=== PATIENT | male | born 1980 ===

== ENCOUNTER 2017-09-23 10:51 | Emergency (ER) | payer SELFPAY ==
[2017-09-23 11:04] VITALS: BMI 23.3
[2017-09-23] MEDS ORDERED: Lidocaine 1% Inj (20ml) INFIL STA (11:17)
[2017-09-23] MEDS ORDERED: Bacitracin 500 Units/gm Oint Foilpak UD TOP STA (11:17)
[2017-09-23] MEDS ORDERED: Lidocaine Hydrochloride 5 ML INJ ONE (11:19)
--- NOTE | 2017-09-23 12:55 | C.PDOC ---
History Of Present Illness 37-year-old male, presents to the emergency department with complaints of laceration to leg. Patient states he was playing soccer and fell, sustaining laceration to left lower leg but unsure from what. Denies any numbness/weakness , nausea/vomiting, or other injuries. Time Seen by Provider: 09/23/17 11:09 Chief Complaint (Nursing): Abnormal Skin Integrity History Per: Patient History/Exam Limitations: no limitations Current Symptoms Are (Timing): Still Present Past Medical History Reviewed: Historical Data, Nursing Documentation, Vital Signs Vital Signs: Last Vital Signs Temp 98.1 F 09/23/17 13:00 Pulse 66 09/23/17 13:00 Resp 18 09/23/17 13:00 BP 112/66 09/23/17 13:00 Pulse Ox 100 09/23/17 15:17 Family History: States: No Known Family Hx - Social History Hx Alcohol Use: Yes Hx Substance Use: No - Immunization History Hx Tetanus Toxoid Vaccination: Yes Hx Influenza Vaccination: No Hx Pneumococcal Vaccination: No Review Of Systems Gastrointestinal: Negative for: Nausea, Vomiting Musculoskeletal: Positive for: Leg Pain Neurological: Negative for: Weakness, Numbness Physical Exam - Physical Exam Appears: Non-toxic, No Acute Distress Skin: Normal Color, Warm, Dry, No Rash Head: Atraumatic, Normacephalic Eye(s): bilateral: Normal Inspection Nose: Normal Oral Mucosa: Moist Lips: Normal Appearing Neck: Normal ROM Chest: Symmetrical Respiratory: No Accessory Muscle Use Extremity: Normal ROM, No Deformity, Other (Linear long laceration 6cm on right lateral lower leg.) Pulses: Left Dorsalis Pedis: Normal, Right Dorsalis Pedis: Normal Neurological/Psych: Oriented x3, Normal Speech ED Course And Treatment O2 Sat by Pulse Oximetry: 100 Laceration - Laceration Repair right lower leg Wound Length (In cm): 6cm Description Of Wound: Linear Wound Cleansed With: Betadine Anesthesia: Lidocaine 1% Wound Examination: Irrigated With Saline (high pressure irrigation), No FB With Wound Exploration, No Tendon Injury With Wound Exploration Wound Closure: [place] (11), Suture (3) Suture Technique And Material Used: Vicryl (3-0) Wound Complexity: Intermediate Medical Decision Making Medical Decision Making: Patient will be discharged with Rx for Keflex. Instructed to follow up with PMD within 1-2 days without fail. Return to ED if symptoms worsen. Wound check in 2 days. Suture removal in 12-14 days. All questions answered. Pt agreeable Disposition - Disposition Disposition: HOME/ ROUTINE Disposition Time: 12:55 Condition: STABLE Additional Instructions: Follow up with your PMD within 1-2 days. Return to ED if feel worse. Wound check in 2 days. Suture removal in 12-14 days. Prescriptions: Bacitracin OINT 1 applic TP TID #45 g Cephalexin [Keflex] 500 mg PO Q6 #28 cap Instructions: Wound Care (DC), Laceration Repair With [place] (DC) Forms: [employer] ([place]) - Clinical Impression Clinical Impression: Leg laceration - Scribe Statement The provider has reviewed the documentation as recorded by the Scribe (Ranulfo Meyer) All medical record entries made by the Scribe were at my direction and personally dictated by me. I have reviewed the chart and agree that the record accurately reflects my personal performance of the history, physical exam, medical decision making, and the department course for this patient. I have also personally directed, reviewed, and agree with the discharge instructions and disposition.
[2017-09-23 13:00] VITALS: BP 112/66; PULSE 66; RESP 18; TEMP 98.1
[2017-09-23 15:09] VITALS: O2SAT 100
== END 2017-09-23 13:12 | disposition home or self-care (01) ==
LOC: C.ER 10:51
DX: S81.811A Laceration without foreign body, right lower leg, initial encounter (principal); W18.39XA Other fall on same level, initial encounter; Y93.66 Activity, soccer; Y92.39 Other specified sports and athletic area as the place of occurrence of the external cause

== ENCOUNTER 2017-10-18 19:41 | Emergency (ER) | payer SELFPAY ==
[2017-10-18 19:41] VITALS: BMI 23.3
[2017-10-18 20:20] VITALS: BP 120/69; PULSE 77; RESP 16; TEMP 98; O2SAT 99
--- NOTE | 2017-10-18 20:22 | C.PDOC ---
History Of Present Illness 37 year old male presents to the ED for staple removal from right leg. Patient was evaluated in this ED on 09/23 and received rene to his right lower leg after he injured himself while playing soccer. Patient was instructed to return for wound check within 12-14 days but was unable to come during the time. Patient denies fever, chills, pain or drainage from the area. Time Seen by Provider: 10/18/17 20:21 Chief Complaint (Nursing): Suture/Staple Removal History Per: Patient History/Exam Limitations: no limitations Onset/Duration Of Symptoms: Days Ago (18) Current Symptoms Are (Timing): Better Quality Of Symptoms: denies: Painful, Itching, Swollen, Draining Additional History Per: Patient Past Medical History Reviewed: Historical Data, Nursing Documentation, Vital Signs Vital Signs: Last Vital Signs Temp 98 F 10/18/17 20:17 Pulse 77 10/18/17 20:17 Resp 16 10/18/17 20:17 BP 120/69 10/18/17 20:17 Pulse Ox 99 10/18/17 21:43 - Medical History PMH: No Chronic Diseases Surgical History: No Surg Hx Family History: States: Unknown Family Hx - Social History Hx Alcohol Use: Yes Hx Substance Use: No - Immunization History Hx Tetanus Toxoid Vaccination: Yes Hx Influenza Vaccination: No Hx Pneumococcal Vaccination: No Review Of Systems Skin: Positive for: Other (staple removal ) Physical Exam - Physical Exam Appears: Non-toxic, No Acute Distress Skin: Normal Color, Warm, Dry, Other (marginal erythema around site of staple placement. no drainage ) Extremity: Normal ROM, No Tenderness, Capillary Refill (less than 2 seconds ), No Swelling Neurological/Psych: Oriented x3, Normal Speech, Normal Cognition Gait: Steady ED Course And Treatment O2 Sat by Pulse Oximetry: 99 (on RA) Pulse Ox Interpretation: Normal Progress Note: All rene removed successfully. Patient tolerated well. Patient is stable for discharge with Rx for Bactroban cream. Advised to follow up with PMD within 1-2 days for further evaluation. Disposition - Disposition Disposition: HOME/ ROUTINE Disposition Time: 20:27 Condition: STABLE Additional Instructions: Follow up with your PMD within 1-2 days. return to ED if feel worse. Prescriptions: Mupirocin 2% Ointment [Bactroban Ointment] 1 appl TP BID #1 tube Instructions: Staple Removal Forms: [employer] ([place]) - Clinical Impression Clinical Impression: Removal of suture - PA / PAINT LABORATORY TECHNICIAN / Resident Statement MD/DO has reviewed & agrees with the documentation as recorded. - Scribe Statement The provider has reviewed the documentation as recorded by the Scribe (Rubi Hathaway) All medical record entries made by the Scribe were at my direction and personally dictated by me. I have reviewed the chart and agree that the record accurately reflects my personal performance of the history, physical exam, medical decision making, and the department course for this patient. I have also personally directed, reviewed, and agree with the discharge instructions and disposition.
== END 2017-10-18 20:38 | disposition home or self-care (01) ==
LOC: C.ER 19:41
DX: Z48.02 Encounter for removal of sutures (principal)